=== PATIENT | female | born 1965 | race Two or more races ===

== ENCOUNTER → 2018-11-18 | Outpatient (CLI) | payer OTHER ==
--- NOTE | 2018-11-18 12:06 | RADIOLOGY IMAGING REPORT ---
FACILITY: [facility] PATIENT NAME: Faustino Cardenas : 1965 MR: [id number] V: [id number] EXAM DATE: ORDERING PHYSICIAN: [facility] TECHNOLOGIST: Location: [facility] Patient: Faustino Cardenas : 1965 Visit/Account:[id number] Date of Sevice: 11/18/2018 EXAMINATION: MRI Brain without intravenous contrast HISTORY: Headache. COMPARISON: None available. TECHNIQUE: Multi-planar, multi-sequence brain MRI was performed without IV contrast administration. FINDINGS: Brain volume: Normal. Sagittal midline structures: Negative. Ventricles: Negative. Acute ischemic changes: None. Hemorrhage: None. Masses / edema: None. Cortes-white: Negative. White matter: A few T2/FLAIR hyperintensities in the deep white matter bilaterally. Vessels: Negative. Extra-axial: Negative. Calvarium / scalp: Negative. Skull base: Negative. Visualized sinuses / orbits: Negative. Visualized upper neck: Negative. IMPRESSION: 1. No acute intracranial abnormality or mass. 2. Mild chronic white matter disease is nonspecific but most likely represents chronic microvascular ischemia. Report Dictated By: Jase Mendoza MD at 11/18/2018 11:57 AM Report E-Signed By: Jase Mendoza MD at 11/18/2018 12:00 PM WSN:[id number]
== END ==
LOC: MRI 10:32
PROVIDERS: ATTEND General Practice
DX: R90.82 White matter disease, unspecified (principal)
CPT/HCPCS: 70551